=== PATIENT | male | born 1965 | race Caucasian/White ===

== ENCOUNTER 2018-07-08 11:13 | Emergency (ER) | payer SELFPAY ==
[~2018-07-08] VITALS: Ht 157.5 cm; Wt 82.0 kg
[2018-07-08] MEDS ORDERED: ACETAMINOPHEN 500MG TABLET PO ONE (12:15)
[2018-07-08] MEDS ORDERED: IBUPROFEN 600MG TABLET PO ONE (12:15)
[2018-07-08] MEDS ORDERED: LIDOCAINE HCL 1% 20ML VIAL (Pyxis) INJ INFIL ONE (13:00)
[2018-07-08 15:08] VITALS: BP 112/66
== END 2018-07-08 15:09 | disposition home or self-care (01) ==
LOC: ER 11:13
DX: S61.512A Laceration without foreign body of left wrist, initial encounter (principal); W45.8XXA Other foreign body or object entering through skin, initial encounter; Y93.89 Activity, other specified; Y92.69 Other specified industrial and construction area as the place of occurrence of the external cause; Y99.8 Other external cause status
CPT/HCPCS: 12002; 99283; J3490; X7700; Z7610